=== PATIENT | female | born 1965 | race African-American/Black ===

== ENCOUNTER 2016-09-21 22:27 | Emergency (ER) | payer SELFPAY ==
[~2016-09-21] VITALS: Ht 172.7 cm; Wt 69.9 kg
[2016-09-21 22:35] VITALS: BP 157/85
[2016-09-22] MEDS ORDERED: HYDROcodone/APAP 5/325MG 1 TAB TABLET PO ONE
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
== END 2016-09-22 00:46 | disposition home or self-care (01) ==
LOC: EEVIPCON 22:27 → ER 22:27
DX: S09.8XXA Other specified injuries of head, initial encounter (principal); S05.12XA Contusion of eyeball and orbital tissues, left eye, initial encounter; R22.0 Localized swelling, mass and lump, head; E11.9 Type 2 diabetes mellitus without complications; E78.00 Pure hypercholesterolemia, unspecified; I10 Essential (primary) hypertension; Y08.89XA Assault by other specified means, initial encounter; Y93.89 Activity, other specified; Y92.89 Other specified places as the place of occurrence of the external cause; Y99.8 Other external cause status
CPT/HCPCS: 70450; 99284-25

== ENCOUNTER 2017-06-03 08:40 | Inpatient (IN) | payer OTHER ==
[2017-06-03 09:35] LABS: BILIRUBIN,URINE NEGATIVE (NEG); CLARITY,URINE CLEAR; COLOR,URINE YELLOW; GLUCOSE,URINE 250 mg/dL (NEG); NITRITE,URINE NEGATIVE (NEG); PH,URINE 5.5; PROTEIN,URINE NEGATIVE (NEG-TRACE); UROBILINOGEN,URINE 0.2 mg/dL (0.2 mg/dL)
[2017-06-03 09:42] LABS: BARBITURATES NEG (NEG); BENZODIAZEPINES NEG (NEG); CANNABINOIDS POS (NEG); COCAINE NEG (NEG); METHADONE NEG (NEG); OPIATES NEG (NEG); PHENCYCLIDINE NEG (NEG)
[2017-06-03 09:46] LABS: AMPHETAMINE/METHAMPHETAMINE NEG (NEG); ETHANOL, URINE NEG (NEG)
[2017-06-03 09:51] LABS: ADD MAN DIFF? NO; BASO % 1 % (0-3); EOS # 0.2 x10^3/uL (0.0-0.7); EOS % 4 % (0-3); HEMATOCRIT 43.9 % (36.0-47.0); HEMOGLOBIN 14.5 g/dL (12.0-15.5); LYMPH % 38 % (24-48); MEAN CORPUSCULAR HEMOGLOBIN 30 pg (25-35); MEAN CORPUSCULAR HGB CONC 33 g/dL (31-37); MEAN CORPUSCULAR VOLUME 90 fL (79-100); MONO # 0.3 x10^3/uL (0.0-1.1); MONO % 6 % (0-9); NEUT # 2.6 x10^3uL (1.8-7.7); NEUT % 51 % (31-73); PLATELET COUNT 160 x10^3/uL (140-400); RED BLOOD COUNT 4.87 x10^6/uL (3.50-5.40); RED CELL DISTRIBUTION WIDTH 12.9 % (11.5-14.5); WHITE BLOOD COUNT 5.2 x10^3/uL (4.0-11.0)
[2017-06-03 09:52] LABS: BACTERIA,URINE MANY /HPF (0-FEW); RBC,URINE 0 /HPF (0-2); SQUAMOUS EPITHELIAL CELL,UR MANY /LPF
[2017-06-03 09:55] LABS: ANION GAP 12 (6-14); BLOOD UREA NITROGEN 12 mg/dL (7-20); CALCIUM 9.5 mg/dL (8.5-10.1); CARBON DIOXIDE 23 mmol/L (21-32); CHLORIDE 106 mmol/L (98-107); GFR 70.2; GLUCOSE 184 mg/dL (70-99); SODIUM 141 mmol/L (136-145)
[2017-06-03 10:00] LABS: ALBUMIN 3.7 g/dL (3.4-5.0); ALK PHOS 96 U/L (46-116); ALT (SGPT) 23 U/L (14-59); AST (SGOT) 14 U/L (15-37); DIRECT BILIRUBIN 0.1 mg/dL (0.0-0.2); LIPASE 204 U/L (73-393); MAGNESIUM 1.9 mg/dL (1.8-2.4); TOTAL BILIRUBIN 0.3 mg/dL (0.2-1.0); TOTAL PROTEIN 7.2 g/dL (6.4-8.2)
[2017-06-03 10:02] LABS: INR 0.9 (0.8-1.1); PROTHROMBIN TIME PATIENT 12.1 SEC (11.7-14.0)
[2017-06-03 10:02] LABS: LACTIC ACID 2.4 mmol/L (0.4-2.0)
[2017-06-03 10:03] LABS: TROPONINI < 0.017 ng/mL (0.000-0.055)
[2017-06-03] MEDS: IV NORMAL SALINE 1000ML BAG 1,000 ML IV (10:03)
[2017-06-03] MEDS: fentaNYL PF VIAL 100 MCG/2 ML VIAL IV (10:04)
[2017-06-03 10:10] LABS: NT-PRO BNP 20 pg/mL (0-124)
[2017-06-03 10:10] LABS: CKMB MASS < 0.5 ng/mL (0.0-3.6); CREATINE KINASE 63 U/L (26-192)
[2017-06-03] MEDS ORDERED: ONDANSETRON PF 4 MG/2 ML VIAL. IV ×2 (11:30→15:30)
[2017-06-03] MEDS ORDERED: DEXTROSE 50% 25 GM / 50ML DISP.SYRIN. IV (13:00)
[2017-06-03] MEDS: INSULIN ASPART 300 UNITS/3 ML INSULN.PEN SQ ×2 (13:03→17:38)
[2017-06-03 14:04] LABS: TROPONINI < 0.017 ng/mL (0.000-0.055)
[2017-06-03 14:47] LABS: INFLUENZA A PATIENT NEGATIVE (NEGATIVE); INFLUENZA B PATIENT NEGATIVE (NEGATIVE); OBC FLU VALID
[2017-06-03] MEDS ORDERED: MORPHINE SULFATE 4 MG/ML DISP.SYRIN. IV (15:30)
[2017-06-03] MEDS ORDERED: hydrALAZINE 20 MG/ML VIAL. IVP (15:30)
[2017-06-03] MEDS ORDERED: ACETAMINOPHEN 325 MG TABLET. PO (15:30)
[2017-06-03] MEDS: GABAPENTIN 100 MG CAPSULE. PO ×2 (17:04→22:14)
[2017-06-03] MEDS: ENOXAPARIN 40 MG/0.4 ML SYRINGE. SQ (17:05)
[2017-06-03 17:26] LABS: POC GLUCOSE 162 mg/dL (70-99)
[2017-06-03 17:45] LABS: VITAMIN-B12 340 pg/mL (247-911)
[2017-06-03] MEDS: IBUPROFEN 800 MG TABLET. PO (17:54)
[2017-06-03 18:05] LABS: CREATINE KINASE 54 U/L (26-192)
[2017-06-03 18:12] LABS: TROPONINI < 0.017 ng/mL (0.000-0.055)
[2017-06-03 19:20] LABS: SEDIMENTATION RATE 5 (0-25)
[2017-06-03 20:10] LABS: POC GLUCOSE 181 mg/dL (70-99)
[2017-06-04 03:16] LABS: HEMOGLOBIN A1C 7.8 % (4.8-5.6)
[2017-06-04 05:53] LABS: ADD MAN DIFF? NO
[2017-06-04 06:13] LABS: BASO # 0.1 x10^3/uL (0.0-0.2); BASO % 1 % (0-3); EOS # 0.2 x10^3/uL (0.0-0.7); EOS % 5 % (0-3); HEMATOCRIT 40.5 % (36.0-47.0); HEMOGLOBIN 13.4 g/dL (12.0-15.5); LYMPH # 2.6 x10^3/uL (1.0-4.8); LYMPH % 55 % (24-48); MEAN CORPUSCULAR HEMOGLOBIN 30 pg (25-35); MEAN CORPUSCULAR HGB CONC 33 g/dL (31-37); MEAN CORPUSCULAR VOLUME 91 fL (79-100); MONO # 0.3 x10^3/uL (0.0-1.1); MONO % 6 % (0-9); NEUT # 1.6 x10^3uL (1.8-7.7); NEUT % 34 % (31-73); PLATELET COUNT 153 x10^3/uL (140-400); RED BLOOD COUNT 4.46 x10^6/uL (3.50-5.40); RED CELL DISTRIBUTION WIDTH 13.1 % (11.5-14.5); WHITE BLOOD COUNT 4.7 x10^3/uL (4.0-11.0)
[2017-06-04 06:32] LABS: ANION GAP 8 (6-14); BLOOD UREA NITROGEN 13 mg/dL (7-20); CALCIUM 9.3 mg/dL (8.5-10.1); CARBON DIOXIDE 27 mmol/L (21-32); CHLORIDE 107 mmol/L (98-107); CHOLESTEROL 190 mg/dL (0-200); GFR 70.2; GLUCOSE 150 mg/dL (70-99); HDLC 64 mg/dL (40-60); LDLC 114 mg/dL (0-100); NON-HDL CHOLESTEROL 126 mg/dL (0-129); SODIUM 142 mmol/L (136-145); TRIGLYCERIDES 58 mg/dL (0-150); VLDLC 12 mg/dL (0-40)
[2017-06-04] MEDS: IBUPROFEN 800 MG TABLET. PO ×3 (07:48→16:54)
[2017-06-04] MEDS: GABAPENTIN 100 MG CAPSULE. PO ×3 (07:48→22:24)
[2017-06-04] MEDS: traMADol 50 MG TABLET PO (07:48)
[2017-06-04] MEDS: INSULIN ASPART 300 UNITS/3 ML INSULN.PEN SQ ×3 (07:51→17:00)
[2017-06-04 08:36] LABS: VITAMIN-B12 261 pg/mL (247-911)
[2017-06-04 10:56] LABS: POC GLUCOSE 179 mg/dL (70-99)
[2017-06-04 15:24] LABS: POC GLUCOSE 165 mg/dL (70-99)
[2017-06-04] MEDS: ENOXAPARIN 40 MG/0.4 ML SYRINGE. SQ (16:55)
[2017-06-04 18:26] LABS: POC GLUCOSE 189 mg/dL (70-99)
[2017-06-04 21:25] LABS: POC GLUCOSE 169 mg/dL (70-99)
[2017-06-04 21:35] LABS: POC GLUCOSE 110 mg/dL (70-99)
[2017-06-05] MEDS: INSULIN ASPART 300 UNITS/3 ML INSULN.PEN SQ ×4 (08:00→23:05)
[2017-06-05 08:21] LABS: POC GLUCOSE 131 mg/dL (70-99)
[2017-06-05] MEDS: IBUPROFEN 800 MG TABLET. PO ×3 (08:36→17:52)
[2017-06-05] MEDS: GABAPENTIN 100 MG CAPSULE. PO ×4 (08:36→21:19)
[2017-06-05] MEDS: tiZANidine 4 MG TABLET. PO (09:45)
[2017-06-05 11:49] LABS: POC GLUCOSE 190 mg/dL (70-99)
[2017-06-05] MEDS: DEXAMETHASONE SOD PHOS 4 MG/ML VIAL IV ×3 (15:00→22:59)
[2017-06-05] MEDS: traMADol 50 MG TABLET PO (15:01)
[2017-06-05] MEDS: DOCUSATE SODIUM 100 MG CAPSULE. PO (15:02)
[2017-06-05 19:22] LABS: POC GLUCOSE 139 mg/dL (70-99)
[2017-06-05 21:03] LABS: POC GLUCOSE 284 mg/dL (70-99)
[2017-06-06] MEDS: DEXAMETHASONE SOD PHOS 4 MG/ML VIAL IV ×4 (06:10→22:47)
[2017-06-06 06:11] LABS: ADD MAN DIFF? NO
[2017-06-06 06:43] LABS: ALBUMIN 3.4 g/dL (3.4-5.0); ALBUMIN/GLOBULIN RATIO 0.9 (1.0-1.7); ALK PHOS 88 U/L (46-116); ALT (SGPT) 31 U/L (14-59); ANION GAP 10 (6-14); AST (SGOT) 19 U/L (15-37); BLOOD UREA NITROGEN 11 mg/dL (7-20); BUN/CREATININE RATIO 12 (6-20); CALCIUM 9.6 mg/dL (8.5-10.1); CARBON DIOXIDE 23 mmol/L (21-32); CHLORIDE 106 mmol/L (98-107); CREATININE 0.9 mg/dL (0.6-1.0); GFR 79.3; GLUCOSE 209 mg/dL (70-99); SODIUM 139 mmol/L (136-145); TOTAL BILIRUBIN 0.3 mg/dL (0.2-1.0); TOTAL PROTEIN 7.3 g/dL (6.4-8.2)
[2017-06-06 06:49] LABS: BASO % 0 % (0-3); EOS % 0 % (0-3); HEMATOCRIT 40.3 % (36.0-47.0); HEMOGLOBIN 13.4 g/dL (12.0-15.5); LYMPH # 1.1 x10^3/uL (1.0-4.8); LYMPH % 18 % (24-48); MEAN CORPUSCULAR HEMOGLOBIN 30 pg (25-35); MEAN CORPUSCULAR HGB CONC 33 g/dL (31-37); MEAN CORPUSCULAR VOLUME 90 fL (79-100); MONO # 0.2 x10^3/uL (0.0-1.1); MONO % 3 % (0-9); NEUT # 5.2 x10^3uL (1.8-7.7); NEUT % 80 % (31-73); PLATELET COUNT 154 x10^3/uL (140-400); RED BLOOD COUNT 4.46 x10^6/uL (3.50-5.40); RED CELL DISTRIBUTION WIDTH 13.2 % (11.5-14.5); WHITE BLOOD COUNT 6.5 x10^3/uL (4.0-11.0)
[2017-06-06] MEDS ORDERED: LIDOCAINE 1% PF 2 ML VIAL. ID (07:00)
[2017-06-06] MEDS ORDERED: PROCHLORPERAZINE 10 MG/2 ML VIAL. IV (07:00)
[2017-06-06] MEDS ORDERED: MORPHINE SULFATE 4 MG/ML DISP.SYRIN. IV (07:00)
[2017-06-06] MEDS ORDERED: ONDANSETRON PF 4 MG/2 ML VIAL. IV (07:00)
[2017-06-06] MEDS ORDERED: fentaNYL PF VIAL 100 MCG/2 ML VIAL IV (07:00)
[2017-06-06] MEDS: IV RINGERS,LACTATED 1000ML 1,000 ML IV (07:00)
[2017-06-06 07:46] LABS: POC GLUCOSE 182 mg/dL (70-99)
[2017-06-06] MEDS: INSULIN ASPART 300 UNITS/3 ML INSULN.PEN SQ ×4 (08:00→22:52)
[2017-06-06] MEDS: IBUPROFEN 800 MG TABLET. PO ×2 (09:00→15:18)
[2017-06-06] MEDS: GABAPENTIN 100 MG CAPSULE. PO ×3 (09:00→20:35)
[2017-06-06] MEDS ORDERED: LIDOCAINE 2% TOPICAL JELLY 30GM TUBE. TP (09:11)
[2017-06-06] MEDS ORDERED: DESFLURANE > 120 MINUTES IH (09:25)
[2017-06-06] MEDS ORDERED: MIDAZOLAM HCL/PF 2 MG/2 ML VIAL. (09:25)
[2017-06-06] MEDS ORDERED: REMIFENTANIL 2 MG VIAL. IV (09:26)
[2017-06-06] MEDS ORDERED: ROCURONIUM 50 MG/5 ML VIAL. (09:26)
[2017-06-06] MEDS ORDERED: GLYCOPYRROLATE 1 MG/5 ML VIAL. (09:26)
[2017-06-06] MEDS ORDERED: DEXAMETHASONE SOD PHOS 20 MG/5 ML VIAL. (09:29)
[2017-06-06] MEDS ORDERED: PROPOFOL 50 ML IV (09:29)
[2017-06-06] MEDS ORDERED: PHENYLEPHRINE 10 MG/ML VIAL. (09:29)
[2017-06-06] MEDS ORDERED: KETOROLAC 30 MG/ML INJ FOR OR. INJ (09:29)
[2017-06-06] MEDS ORDERED: PROPOFOL 20 ML IV (09:29)
[2017-06-06] MEDS ORDERED: ONDANSETRON PF 4 MG/2 ML VIAL. (09:29)
[2017-06-06] MEDS: traMADol 50 MG TABLET PO (09:35)
[2017-06-06] MEDS ORDERED: ceFAZolin 1GM IVPB FOR OMNI 100 ML IV (10:05)
[2017-06-06] MEDS ORDERED: LIDOCAINE 2% VISCOUS 15 ML SOLUTION. (10:17)
[2017-06-06] MEDS: BUPIVAC MPF-EPI 0.5%-1:200000 30 ML VIAL. INJ (12:08)
[2017-06-06] MEDS: BACITRACIN 50,000 UNIT in IV NORMAL SALINE 1000ML BAG 1,000 ML IRR (12:08)
[2017-06-06] MEDS: GELATIN SPONGE SIZE 100. (12:08)
[2017-06-06] MEDS: THROMBIN TOPICAL 20,000 UNIT SPRAY.SYRN KIT TP (12:08)
[2017-06-06] MEDS ORDERED: fentaNYL PF VIAL 100 MCG/2 ML VIAL ×2 (13:46→14:19)
[2017-06-06] MEDS: fentaNYL PF VIAL 100 MCG/2 ML VIAL IV ×4 (13:51→14:39)
[2017-06-06 14:46] LABS: POC GLUCOSE 189 mg/dL (70-99)
[2017-06-06] MEDS: cefTRIAXone IV Push 1 GM VIAL. IVP (15:27)
[2017-06-06] MEDS ORDERED: HYDROcodone/APAP 7.5/325MG 1 TAB TABLET PO (16:15)
[2017-06-06 17:58] LABS: POC GLUCOSE 362 mg/dL (70-99)
[2017-06-06] MEDS: HYDROcodone/APAP 7.5/325MG 1 TAB TABLET PO (18:15)
[2017-06-06] MEDS: LACTOBACILLUS RHAMNOSUS GG 1 CAPSULE. PO (20:35)
[2017-06-06 20:58] LABS: POC GLUCOSE 337 mg/dL (70-99)
[2017-06-06] MEDS: INSULIN DETEMIR 300 UNITS/3 ML INSULN.PEN. SQ (22:51)
[2017-06-07] MEDS: HYDROcodone/APAP 7.5/325MG 1 TAB TABLET PO ×2 (02:10→07:55)
[2017-06-07] MEDS: DEXAMETHASONE SOD PHOS 4 MG/ML VIAL IV (05:44)
[2017-06-07 06:04] LABS: ADD MAN DIFF? NO
[2017-06-07 06:12] LABS: BASO % 0 % (0-3); EOS % 0 % (0-3); HEMATOCRIT 38.1 % (36.0-47.0); HEMOGLOBIN 12.7 g/dL (12.0-15.5); LYMPH # 1.4 x10^3/uL (1.0-4.8); LYMPH % 12 % (24-48); MEAN CORPUSCULAR HEMOGLOBIN 30 pg (25-35); MEAN CORPUSCULAR HGB CONC 33 g/dL (31-37); MEAN CORPUSCULAR VOLUME 90 fL (79-100); MONO # 0.7 x10^3/uL (0.0-1.1); MONO % 6 % (0-9); NEUT # 9.4 x10^3uL (1.8-7.7); NEUT % 81 % (31-73); PLATELET COUNT 154 x10^3/uL (140-400); RED BLOOD COUNT 4.25 x10^6/uL (3.50-5.40); RED CELL DISTRIBUTION WIDTH 13.1 % (11.5-14.5); WHITE BLOOD COUNT 11.6 x10^3/uL (4.0-11.0)
[2017-06-07 06:31] LABS: ALBUMIN 3.3 g/dL (3.4-5.0); ALBUMIN/GLOBULIN RATIO 0.9 (1.0-1.7); ALK PHOS 83 U/L (46-116); ALT (SGPT) 20 U/L (14-59); ANION GAP 8 (6-14); AST (SGOT) 13 U/L (15-37); BLOOD UREA NITROGEN 14 mg/dL (7-20); BUN/CREATININE RATIO 14 (6-20); CALCIUM 9.4 mg/dL (8.5-10.1); CARBON DIOXIDE 26 mmol/L (21-32); CHLORIDE 105 mmol/L (98-107); GFR 70.2; GLUCOSE 173 mg/dL (70-99); POTASSIUM 4.3 mmol/L (3.5-5.1); SODIUM 139 mmol/L (136-145); TOTAL BILIRUBIN 0.3 mg/dL (0.2-1.0); TOTAL PROTEIN 6.8 g/dL (6.4-8.2)
[2017-06-07 07:45] LABS: POC GLUCOSE 179 mg/dL (70-99)
[2017-06-07] MEDS: GABAPENTIN 100 MG CAPSULE. PO (07:55)
[2017-06-07] MEDS: LACTOBACILLUS RHAMNOSUS GG 1 CAPSULE. PO (07:55)
[2017-06-07] MEDS: INSULIN ASPART 300 UNITS/3 ML INSULN.PEN SQ ×2 (07:59→11:38)
[2017-06-07 11:37] LABS: POC GLUCOSE 236 mg/dL (70-99)
== END 2017-06-07 12:00 | disposition home or self-care (01) | DRG 853 ==
LOC: ER 08:40 → 6 SOUTH 10:48
PROC: 0RG10A0 Fusion of Cervical Vertebral Joint with Interbody Fusion Device, Anterior Approach, Anterior Column, Open Approach (ICD-10-PCS; principal; 2017-06-06 11:16)
PROC: 0RB30ZZ Excision of Cervical Vertebral Disc, Open Approach (ICD-10-PCS; 2017-06-06 11:16)
PROC: 4A11X4G Monitoring of Peripheral Nervous Electrical Activity, Intraoperative, External Approach (ICD-10-PCS; 2017-06-06 11:16)
DX: A41.9 Sepsis, unspecified organism (principal); E11.00 Type 2 diabetes mellitus with hyperosmolarity without nonketotic hyperglycemic-hyperosmolar coma (NKHHC); G95.89 Other specified diseases of spinal cord; E11.40 Type 2 diabetes mellitus with diabetic neuropathy, unspecified; N39.0 Urinary tract infection, site not specified; E11.65 Type 2 diabetes mellitus with hyperglycemia; F12.10 Cannabis abuse, uncomplicated; F17.200 Nicotine dependence, unspecified, uncomplicated; M47.812 Spondylosis without myelopathy or radiculopathy, cervical region; E78.5 Hyperlipidemia, unspecified; F32.9 Major depressive disorder, single episode, unspecified; F41.9 Anxiety disorder, unspecified; G89.29 Other chronic pain; I10 Essential (primary) hypertension; M50.30 Other cervical disc degeneration, unspecified cervical region; N88.8 Other specified noninflammatory disorders of cervix uteri; Z82.49 Family history of ischemic heart disease and other diseases of the circulatory system; Z98.1 Arthrodesis status; Z98.51 Tubal ligation status; E78.00 Pure hypercholesterolemia, unspecified
CPT/HCPCS: 36415; 70450; 70551; 71045; 72141; 73521; 76000; 80048; 80053; 80061; 80076; 80307; 81001; 82306; 82550; 82553; 82607; 82962; 83036; 83605; 83690; 83735; 83880; 84443; 84484; 85025; 85610; 85651; 87086; 87186; 87804; 87804-59; 88304; 88311; 93005; 93306; 96361; 96374; 97112-GP; 97116-GP; 97162-GP; 97164-GP; 97166-GO; 97535-GO; 99285; 99285-25; 99406; C1713; J0690; J0696; J1100; J1650; J1815; J1885; J2250; J2405; J2704; J3010; J3490; J7030

== ENCOUNTER 2017-11-14 13:25 | Inpatient (IN) | payer SELFPAY ==
[~2017-11-14] VITALS: Ht 172.7 cm; Wt 73.9 kg
[~2017-11-14 13:25] MED LIST: ALPR0.5T6 PO; CITA40TA12 PO; HYDR-2758 PO; METH4TAB2 PO
[2017-11-14] MEDS ORDERED: MAG HYDROX/ALUMINUM HYD/SIMETH 30 ML ORAL.SUSP PO PRN (14:15)
[2017-11-14] MEDS ORDERED: diphenhydrAMINE HCL 25 MG CAPSULE PO PRN (14:15)
[2017-11-14] MEDS ORDERED: 0.9 % SODIUM CHLORIDE 10 ML DISP.SYRIN. IV PRN (14:15)
[2017-11-14] MEDS ORDERED: ACETAMINOPHEN 325 MG TABLET. PO PRN (14:15)
[2017-11-14] MEDS ORDERED: CALCIUM CARBONATE 500 MG TAB.CHEW PO PRN (14:15)
[2017-11-14] MEDS ORDERED: diphenhydrAMINE 50 MG/ML VIAL IV PRN (14:15)
[2017-11-14 15:00] VITALS: BP 136/71
[2017-11-14] MEDS ORDERED: DEXTROSE 50% 25 GM / 50ML DISP.SYRIN. IV PRN (15:00)
[2017-11-14] MEDS: GABAPENTIN 300 MG CAPSULE. PO SCH ×2 (15:00→20:56)
[2017-11-14] MEDS: CITALOPRAM 20 MG TABLET. PO SCH (15:00)
--- NOTE | 2017-11-14 15:20 | HP ---
ADMIT DATE: 11/14/2017 HISTORY OF PRESENT ILLNESS: The patient is a pleasant 51-year-old who underwent an anterior cervical microdiskectomy and fusion at C5-C6 in 05/2017 for cervical myelopathy, herniated cervical disk and cervical myelomalacia. She was having difficulty with neck and shoulder pain as well as numbness in her hands and unsteadiness of gait. Following surgery, her symptoms did improve to a degree. However, over the last month, she has noticed increasing pain in her upper extremities as well as numbness in her hands and unsteadiness of gait. She was seen in the office today and reports significant increase in her upper extremity burning pain and unsteady with walking. PAST MEDICAL HISTORY: Anxiety, depression, diabetes. PAST SURGICAL HISTORY: Carpal tunnel release in 2002, anterior cervical diskectomy and fusion at C5-C6 in 05/2017 as mentioned above. ALLERGIES: No known drug allergies. MEDICATIONS: Listed on the MAR, but she has been taking Robaxin, gabapentin and Celexa. FAMILY HISTORY: Hypertension. SOCIAL HISTORY: Occasionally drinks alcohol. PHYSICAL EXAMINATION: GENERAL: Alert and oriented. HEENT: Head is normocephalic, atraumatic. Well-healed cervical incision. MUSCULOSKELETAL: There is some tenderness with palpation of the posterior cervical spine, decreased range of motion of the cervical spine. EXTREMITIES: No clubbing, cyanosis or edema. NEUROLOGIC: She is alert and oriented. Normal strength in her upper and lower extremities. There is a decrease in light touch sensation in the upper extremities and hands. Mildly unsteady gait. Reflexes were 2+ and symmetric in the upper and lower extremities. ASSESSMENT AND PLAN: She is having a significant increase in her symptoms with unsteadiness and pain and numbness in her upper and lower extremities. She will be admitted for an MRI scan and further evaluation and treatment. KAMILA HARDIN MD DR: JANA/raeann JOB#: [id number] / [id number]
[2017-11-14] MEDS ORDERED: METH-38 PO (15:28)
[2017-11-14] MEDS ORDERED: DIAZ5TAB4 PO (15:28)
[2017-11-14] MEDS ORDERED: GABA-586 PO (15:51)
[2017-11-14] MEDS ORDERED: BUSP10TA PO (15:51)
[2017-11-14] MEDS ORDERED: SERT50TA PO (15:52)
[2017-11-14] MEDS: METHOCARBAMOL 750 MG TABLET PO SCH ×2 (16:15→20:56)
[2017-11-14] MEDS: HYDROcodone/APAP 5/325MG 1 TAB TABLET PO PRN ×2 (16:15→20:56)
[2017-11-14 19:45] VITALS: BP 103/59
[2017-11-14] MEDS ORDERED: GADOBUTROL 7.5 MMOL/7.5 ML VIAL IV ONE (19:45)
[2017-11-14 23:20] VITALS: BP 105/61
[2017-11-15] MEDS: HYDROcodone/APAP 5/325MG 1 TAB TABLET PO PRN ×3 (01:55→14:10)
[2017-11-15 03:23] VITALS: BP 84/49
[2017-11-15 07:00] VITALS: BP 113/65
--- NOTE | 2017-11-15 08:23 | RAD ---
MRI Cervical Spine with and without contrast History: Cervical stenosis, myelopathy Technique: Multiplanar, multi sequential pre and postcontrast MR imaging was performed of the cervical spine. Comparison: June 03, 2017 Findings: There is again focus of abnormal T2 and STIR hyperintense signal of the cervical or cord at C5-C6 overall similar in size without associated enhancement. There is no new cervical cord signal abnormality. There is no significant enhancement of the cervical cord or enhancement in the intervertebral disc spaces. There is been interval anterior cervical fusion at C5-C6. There is no new abnormality cervical medullary junction. There is no significant marrow edema. Cervical vertebral body stature and AP alignment are within normal limits. There is mild disc desiccation C4-5. There is a [id number] left maxillary sinus mucosal thickening, very minimally on the right consistent small mucous retention cyst. C2-C3: Neural foramina and spinal canal are adequate. C3-C4: There is a very shallow posterior protrusion. Central canal is borderline about 10 mm. There is minimal uncovertebral degenerative change. There is mild to moderate narrowing of left neural foramen, right neural foramen overall adequate. C4-C5: There is again negligible disc osteophyte complex and bulge. Central canal is minimally narrowed to 9 to 10 mm. There is mild proximal narrowing of the left neural foramen, right neural foramen overall adequate. C5-C6: There is minimal posterior osteophytes. There is buckling of the ligamentum flavum. Central canal is narrowed to about 8 mm, somewhat decreased. There is uncovertebral degenerative change greater on the left, contributes to fairly severe neural foramina compromise greater on the left. C6-C7: There is negligible disc osteophyte complex. Central canal is borderline about 10 mm. There is minimal uncovertebral degenerative change greater on the left, very mild narrowing of the left neural foramen. Right neural foramen is overall adequate. C7-T1: There is facet degenerative change. Neural spinal canal is adequate. There is likely [id number] narrowing of the right neural foramen, left neural foramen not significantly narrowed. Impression: 1. There is mild spinal stenosis as described C4-5 and C5-6. There is fairly severe neural foramina compromise bilaterally at C5-C6, lesser degree of narrowing on the right at C7-T1 and on the left at C3-4. There has been anterior cervical fusion at C5-6. There is again myelomalacia of the cervical cord cord centered at C5-6. Electronically signed by: Ulices Guerra MD (11/15/2017 8:19 AM) [facility]
[2017-11-15] MEDS: CITALOPRAM 20 MG TABLET. PO SCH (08:47)
[2017-11-15] MEDS: METHOCARBAMOL 750 MG TABLET PO SCH ×2 (08:47→14:09)
[2017-11-15] MEDS: GABAPENTIN 300 MG CAPSULE. PO SCH ×2 (08:47→14:09)
[2017-11-15 11:00] VITALS: BP 98/54
[2017-11-15 14:56] VITALS: BP 115/68
--- NOTE | 2017-11-15 17:13 | DISCH ---
DISCHARGE INSTRUCTIONS Condition on Discharge Condition on Discharge: Stable Activity After Discharge Activity Instructions for Disc: Activity as tolerated, Avoid exertion Lifting Instructions after Dis: No heavy lifting, No pulling or pushing, Do not lift >10 pounds Driving Instructions after Dis: No driving for 2 weeks Weight Bearing Status after Di: Other, see below Diet after Discharge Diet after Discharge: Diabetic No Calorie Level Additional Diet Restrictions: resume home diet Wound Incision Care Wound/Incision Care: Ice to area for comfort Contacting the [facility] after DC Call your doctor for: Concerns you may have Follow-Up Follow up with: Dr. Hardin next week [phone] Treatment/Equipment after DC Adaptive Equipment Issued: None KAMILA HARDIN MD Nov 15, 2017 17:13
--- NOTE | 2017-11-15 17:18 | PDOC ---
PROGRESS NOTES Subjective Subjective continued neck pain and pain, numbness and tingling in upper extremities Objective Objective Vital Signs Date Time Temp Pulse Resp B/P (MAP) Pulse Ox O2 Delivery O2 Flow Rate FiO2 11/15/17 15:15 99 Room Air 11/15/17 14:56 97.9 74 18 115/68 (84) 97.9 Intake and Output 11/15/17 07:00 Intake Total 1010 ml Balance 1010 ml Intake Oral 1010 ml # Voids 3 Physical Exam General: Alert, Oriented X3, Cooperative MUSCULOSKELETAL: Other (FIGUEROA) Neuro: Normal speech, Strength at 5/5 X4 ext, Other Plan Plan of Care discussed MRI results she is not interested in surgery we will make arrangements for YOUNG as OP Comment Review of Relevant I have reviewed the following items keenan (where applicable) has been applied. Labs Laboratory Tests Test 11/14/17 16:45 11/14/17 21:00 11/15/17 07:57 11/15/17 11:29 Glucose (Fingerstick) 172 mg/dL (70-99) 221 mg/dL (70-99) 150 mg/dL (70-99) 152 mg/dL (70-99) Test 11/15/17 16:54 Glucose (Fingerstick) 179 mg/dL (70-99) Laboratory Tests Test 11/14/17 21:00 11/15/17 07:57 11/15/17 11:29 11/15/17 16:54 Glucose (Fingerstick) 221 mg/dL (70-99) 150 mg/dL (70-99) 152 mg/dL (70-99) 179 mg/dL (70-99) Medications Current Medications Citalopram Hydrobromide (CeleXA) 40 mg DAILY PO Last administered on 11/15/17at 08:47; Start 11/14/17 at 15:00 Acetaminophen (Tylenol) 650 mg PRN Q6HRS PRN PO MILD PAIN / TEMP; Start at 14:15 Al Hydroxide/Mg Hydroxide (Mylanta Plus Xs) 30 ml PRN Q3HRS PRN PO HEARTBURN / GAS; Start 11/14/17 at 14:15 Calcium Carbonate/ Glycine (Tums) 500 mg PRN Q3HRS PRN PO INDIGESTION; Start at 14:15 Diphenhydramine HCl (Benadryl) 25 mg PRN Q6HRS PRN PO ITCHING; Start 11/14/17 at 14:15 Diphenhydramine HCl (Benadryl) 25 mg PRN Q6HRS PRN IV ITCHING; Start 11/14/17 at 14:15 Sodium Chloride (Normal Saline Flush) 3 ml QSHIFT PRN IV AFTER MEDS AND BLOOD DRAWS; Start 11/14/17 at 14:15 Acetaminophen/ Hydrocodone Bitart (Lortab 5/325) 1 tab PRN Q4HRS PRN PO MODERATE PAIN Last administered on 11/15/17at 01:55; Start 11/14/17 at 14:15 Acetaminophen/ Hydrocodone Bitart (Lortab 5/325) 2 tab PRN Q4HRS PRN PO SEVERE PAIN Last administered on 11/15/17at 14:10; Start 11/14/17 at 14:15 Methocarbamol (Robaxin) 750 mg TID PO Last administered on 11/15/17at 14:09; Start 11/14/17 at 15:00 Gabapentin (Neurontin) 300 mg TID PO Last administered on 11/15/17at 14:09; Start 11/14/17 at 15:00 Dextrose (Dextrose 50%-Water Syringe) 12.5 gm PRN Q15MIN PRN IV SEE COMMENTS; Start 11/14/17 at 15:00 Gadobutrol (Gadavist) 7.5 mmol 1X ONCE IV ; Start 11/14/17 at 19:45; Stop 11/14 at 19:46; Status DC Active Scripts Active Reported Zoloft (Sertraline Hcl) 50 Mg Tablet 1 Tab PO DAILY Gabapentin 300 Mg Capsule 300 Mg PO TID Buspirone Hcl 10 Mg Tablet 1 Tab PO BID Diazepam 5 Mg Tablet 5 Mg PO BID Robaxin-750 (Methocarbamol) 750 Mg Tablet 1 Tab PO TID Celexa (Citalopram Hydrobromide) 40 Mg Tablet 1 Tab PO DAILY Alprazolam 0.5 Mg Tablet 1 Tab PO TID Hydrocodone-Apap 5-325 (Hydrocodone Bit/Acetaminophen) 1 Each Tablet 1 Tab PO PRN Q6HRS PRN Medrol (Methylprednisolone) 4 Mg Tab.ds.pk 1 Pkg PO UD Vitals/I & O Vital Sign - Last 24 Hours 11/14/17 11/14/17 11/14/17 11/14/17 19:45 20:00 20:56 22:00 Temp 98.1 98.1 Pulse 73 Resp 18 18 18 B/P (MAP) 103/59 (74) Pulse Ox 96 96 O2 Delivery Room Air Room Air Room Air 11/14/17 11/15/17 11/15/17 11/15/17 23:20 01:55 03:00 03:23 Temp 98.0 97.7 98.0 97.7 Pulse 66 69 Resp 18 18 B/P (MAP) 105/61 (76) 84/49 (61) Pulse Ox 96 98 98 O2 Delivery Room Air Room Air Room Air Room Air 11/15/17 11/15/17 11/15/17 11/15/17 07:00 07:31 07:45 11:00 Temp 97.7 98.1 97.7 98.1 Pulse 64 72 Resp 16 18 B/P (MAP) 113/65 (81) 98/54 (69) Pulse Ox 96 98 97 O2 Delivery Room Air Room Air Room Air Room Air 11/15/17 11/15/17 11/15/17 14:10 14:56 15:15 Temp 97.9 97.9 Pulse 74 Resp 18 B/P (MAP) 115/68 (84) Pulse Ox 97 99 99 O2 Delivery Room Air Room Air Room Air Intake and Output 11/14/17 11/14/17 11/15/17 15:00 23:00 07:00 Intake Total 470 ml 540 ml Balance 470 ml 540 ml KAMILA HARDIN MD Nov 15, 2017 17:18
== END 2017-11-15 17:30 | disposition home or self-care (01) | DRG 93 ==
LOC: 4 NORTH 13:38
PROVIDERS: ADMIT Neurological Surgery; ATTEND Neurological Surgery
DX: G95.89 Other specified diseases of spinal cord (principal); M54.2 Cervicalgia; E11.9 Type 2 diabetes mellitus without complications; F32.9 Major depressive disorder, single episode, unspecified; F41.9 Anxiety disorder, unspecified; Z82.49 Family history of ischemic heart disease and other diseases of the circulatory system; Z98.1 Arthrodesis status; Z79.899 Other long term (current) drug therapy
CPT/HCPCS: 72156; 82962; 99406

== ENCOUNTER 2018-01-04 05:26 | Emergency (ER) | payer SELFPAY ==
[~2018-01-04] VITALS: Ht 175.3 cm; Wt 74.4 kg
[~2018-01-04 05:26] MED LIST changes: +BUSP10TA PO; +DIAZ5TAB4 PO; +GABA-586 PO; +METH-38 PO; +SERT50TA PO
[2018-01-04] MEDS ORDERED: LIDOCAINE WITH 8.4% SOD BICARB 3 ML DISP.SYRIN. ONE (05:48)
[2018-01-04 05:50] LABS: BASO # 0.1 x10^3/uL (0.0-0.2); BASO % 1 % (0-3); EOS # 0.4 x10^3/uL (0.0-0.7); EOS % 5 % (0-3); HEMATOCRIT 39.2 % (36.0-47.0); HEMOGLOBIN 13.4 g/dL (12.0-15.5); LYMPH # 2.4 x10^3/uL (1.0-4.8); LYMPH % 34 % (24-48); MEAN CORPUSCULAR HEMOGLOBIN 31 pg (25-35); MEAN CORPUSCULAR HGB CONC 34 g/dL (31-37); MEAN CORPUSCULAR VOLUME 90 fL (79-100); MONO # 0.5 x10^3/uL (0.0-1.1); MONO % 7 % (0-9); NEUT # 3.9 x10^3uL (1.8-7.7); NEUT % 53 % (31-73); PLATELET COUNT 169 x10^3/uL (140-400); RED BLOOD COUNT 4.34 x10^6/uL (3.50-5.40); RED CELL DISTRIBUTION WIDTH 13.7 % (11.5-14.5); WHITE BLOOD COUNT 7.3 x10^3/uL (4.0-11.0)
[2018-01-04] MEDS ORDERED: ASPIRIN CHEWABLE 81 MG TABLET. PO ONE (06:00)
--- NOTE | 2018-01-04 06:06 | PHYS DOC ---
Past Medical History Past Medical History: Diabetes-Type II, High Cholesterol, Hypertension Past Surgical History: Tubal ligation, Other Additional Past Surgical Histo: carpal tunnel Alcohol Use: Occasionally Drug Use: Marijuana Adult General Chief Complaint Chief Complaint: ABSCESS HPI HPI Patient is a 52-year-old female who presents with complaint of chest pain that started 2 days ago and just has been progressively worsening. She states the pain is across her entire precordium. She rates the pain at a 6 out of 10. She states that she has had a tender swollen area on her left upper chest for the last 3 days and thinks she may have been bitten by an insect. She states that over the last 2 days the swelling has gotten worse and yesterday she started getting a little bit of drainage of pus. Patient states that this morning the swelling has gotten worse again and she feels like it needs to be drained. She denies any fever, nausea or vomiting. Patient is unsure whether or not part of her chest discomfort is due to her anxiety. She denies fever. Review of Systems Review of Systems Constitutional: Denies fever or chills [] Respiratory: Denies cough or shortness of breath [] Cardiovascular: Complains of chest pain[] GI: Denies abdominal pain, nausea, vomiting or diarrhea [] Integument: Complains of abscess[] All other systems were reviewed and found to be within normal limits, except as documented in this note. Current Medications Current Medications Current Medications Medications (Trade) Dose Ordered Sig/Dimas Start Time Stop Time Status Last Admin Dose Admin Aspirin (Children'S Aspirin) 324 mg 1X ONCE 01/04/18 06:00 01/04/18 06:01 DC 01/04/18 06:26 324 MG Bacitracin 1 silvia 1X ONCE 01/04/18 07:00 01/04/18 07:01 DC 01/04/18 06:26 1 SILVIA Cefazolin Sodium 50 ml @ 100 mls/hr 1X ONCE 01/04/18 07:00 01/04/18 07:29 01/04/18 06:26 100 MLS/HR Lidocaine/Sodium Bicarbonate (Buffered Lidocaine 1%) 3 ml 1X ONCE 01/04/18 06:15 01/04/18 06:16 DC 01/04/18 05:57 3 ML Allergies Allergies Allergies Coded Allergies Type Severity Reaction Last Updated Verified No Known Drug Allergies 01/04/14 No Physical Exam Physical Exam Constitutional: Well developed, well nourished, no acute distress, non-toxic appearance. [] HENT: Normocephalic, atraumatic, bilateral external ears normal, oropharynx moist, no oral exudates, nose normal. [] Eyes: PERRLA, EOMI, conjunctiva normal, no discharge. [] Neck: Normal range of motion, no tenderness, supple, no stridor. [] Cardiovascular: Tachycardic rate with regular rhythm[] Lungs & Thorax: Bilateral breath sounds clear to auscultation [] Abdomen: Bowel sounds normal, soft, no tenderness. [] Skin: Left upper chest demonstrates an area of moderate swelling with induration and fluctuance consistent with abscess. [] Extremities: No tenderness, no cyanosis, no clubbing, ROM intact, no edema. [] Neurologic: Alert and oriented X 3, normal motor function, normal sensory function, no focal deficits noted. [] Current Patient Data Vital Signs Vital Signs Date Time Temp Pulse Resp B/P (MAP) Pulse Ox O2 Delivery O2 Flow Rate FiO2 01/04/18 06:34 98 16 129/76 (93) 99 Room Air 01/04/18 05:28 98.3 98.3 Lab Values Laboratory Tests Test 01/04/18 05:36 01/04/18 06:20 White Blood Count 7.3 x10^3/uL (4.0-11.0) Red Blood Count 4.34 x10^6/uL (3.50-5.40) Hemoglobin 13.4 g/dL (12.0-15.5) Hematocrit 39.2 % (36.0-47.0) Mean Corpuscular Volume 90 fL (79-100) Mean Corpuscular Hemoglobin 31 pg (25-35) Mean Corpuscular Hemoglobin Concent 34 g/dL (31-37) Red Cell Distribution Width 13.7 % (11.5-14.5) Platelet Count 169 x10^3/uL (140-400) Neutrophils (%) (Auto) 53 % (31-73) Lymphocytes (%) (Auto) 34 % (24-48) Monocytes (%) (Auto) 7 % (0-9) Eosinophils (%) (Auto) 5 % (0-3) H Basophils (%) (Auto) 1 % (0-3) Neutrophils # (Auto) 3.9 x10^3uL (1.8-7.7) Lymphocytes # (Auto) 2.4 x10^3/uL (1.0-4.8) Monocytes # (Auto) 0.5 x10^3/uL (0.0-1.1) Eosinophils # (Auto) 0.4 x10^3/uL (0.0-0.7) Basophils # (Auto) 0.1 x10^3/uL (0.0-0.2) Sodium Level 141 mmol/L (136-145) Potassium Level 4.2 mmol/L (3.5-5.1) Chloride Level 105 mmol/L (98-107) Carbon Dioxide Level 25 mmol/L (21-32) Anion Gap 11 (6-14) Blood Urea Nitrogen 20 mg/dL (7-20) Creatinine 1.3 mg/dL (0.6-1.0) H Estimated GFR (Cockcroft-Gault) 51.6 BUN/Creatinine Ratio 15 (6-20) Glucose Level 186 mg/dL (70-99) H Calcium Level 9.0 mg/dL (8.5-10.1) Magnesium Level 1.7 mg/dL (1.8-2.4) L Total Bilirubin 0.2 mg/dL (0.2-1.0) Aspartate Amino Transferase (AST) 20 U/L (15-37) Alanine Aminotransferase (ALT) 30 U/L (14-59) Alkaline Phosphatase 118 U/L (46-116) H Troponin I Quantitative < 0.017 ng/mL (0.000-0.055) CO-Fzm-V-Type Natriuretic Peptide 80 pg/mL (0-124) Total Protein 7.0 g/dL (6.4-8.2) Albumin 3.2 g/dL (3.4-5.0) L Albumin/Globulin Ratio 0.8 (1.0-1.7) L Laboratory Tests 01/04/18 05:36 Laboratory Tests 01/04/18 06:20 EKG EKG [] Interpretation Time: EKG demonstrates sinus tachycardia with rate of 119. Radiology/Procedures Radiology/Procedures [] Course & Med Decision Making Course & Med Decision Making Pertinent Labs and Imaging studies reviewed. (See chart for details) Abscess Incision and Drainage with irrigation by me: Location: Left upper chest Anesthesia: Local 1% Lidocaine Technique: Irrigated. Disrupted loculations w/ instrumentation Packing: None Complications: Neurovascularly intact post procedure 48 hour wound check. Scar minimization instructions given. A cardiac workup has been initiated on this patient and as of 6:00 AM workup is pending. Patient is being signed out to Dr. Nickerson at 6:05 AM. @0729: Patient had unremarkable lab results except for magnesium of 1.7 and creatinine of 1.3. Patient felt better after drainage of abscess. Plan discharge patient home to diagnose of chest wall pain and abscess. Dragon Disclaimer Dragon Disclaimer This electronic medical record was generated, in whole or in part, using a voice recognition dictation system. Departure Departure Impression: Primary Impression: Chest wall abscess Additional Impressions: Chest pain Hypomagnesemia Anxiety Disposition: HOME, SELF-CARE (at 0726) Condition: IMPROVED Referrals: KRISTA CLEANING MD (PCP) Patient Instructions: Abscess, Abscess, Care After, Anxiety and Panic Attacks, Chest Wall Pain, Hypomagnesemia Additional Instructions: Change dressing daily and as needed Follow-up with your primary care physician in 3-5 days Return to ER if not getting better Scripts Acetaminophen With Codeine (TYLENOL WITH CODEINE #3 TABLET) 1 Each Tablet 1 TAB PO PRN Q6HRS PRN for PAIN, #10 TAB Prov: GWEN NICKERSON MD 01/04/18 Sulfamethoxazole/Trimethoprim (BACTRIM DS TABLET) 1 Each Tablet 1 TAB PO BID for infection, #14 TAB Prov: GWEN NICKERSON MD 01/04/18 Problem Qualifiers EZEKIEL POWERS Jr. DO Jan 04, 2018 06:06 GWEN NICKERSON MD Jan 04, 2018 07:06
--- NOTE | 2018-01-04 06:14 | RAD ---
PORTABLE CHEST 1V Clinical Indication: chest pain Comparison: AP chest, June 03, 2017. Findings: The cardiomediastinal silhouette is normal. Lungs are clear. There is no pneumothorax. No pleural effusion is appreciated. No acute bone abnormality. IMPRESSION: No acute cardiopulmonary process. Electronically signed by: Olman Gonzalez MD (01/04/2018 6:11 AM) [facility]
[2018-01-04] MEDS ORDERED: LIDOCAINE WITH 8.4% SOD BICARB 3 ML DISP.SYRIN. INJ ONE (06:15)
[2018-01-04 06:51] LABS: CREATININE 1.3 mg/dL (0.6-1.0); GFR 51.6; POTASSIUM 4.2 mmol/L (3.5-5.1)
[2018-01-04 06:53] LABS: ALBUMIN 3.2 g/dL (3.4-5.0); ALBUMIN/GLOBULIN RATIO 0.8 (1.0-1.7); MAGNESIUM 1.7 mg/dL (1.8-2.4); TOTAL BILIRUBIN 0.2 mg/dL (0.2-1.0)
[2018-01-04] MEDS ORDERED: BACITRACIN TOPICAL OINT 14GM TUBE. TP ONE (07:00)
[2018-01-04] MEDS ORDERED: ACET-704 PO (07:29)
[2018-01-04] MEDS ORDERED: SULF1TAB24 PO (07:29)
[2018-01-04 07:30] VITALS: BP 129/72
--- NOTE | 2018-01-04 07:40 | EKG ---
[facility] [address] [place] [address] Test Date: 2018-01-04 Test Time: 05:39:45 Pat Name: ARIANNA SAVAGE Department: Room: Gender: F Continuous Improvement Black Belt: : 1965 Requested By: EZEKIEL POWERS Order Number: [id number] Reading MD: Cristi Velasquez MD Measurements Intervals [place] Rate: 119 P: 41 ID: [id number] QRS: 28 QRSD: 68 T: 35 QT: 298 QTc: 420 Interpretive Statements SINUS TACHYCARDIA Electronically Signed On 01-06-2018 11:24:45 DROP TESTER by Cristi Velasquez MD
== END 2018-01-04 07:45 | disposition home or self-care (01) ==
LOC: ER 05:26
DX: L02.213 Cutaneous abscess of chest wall (principal); E83.42 Hypomagnesemia; F41.9 Anxiety disorder, unspecified; R00.0 Tachycardia, unspecified; E11.9 Type 2 diabetes mellitus without complications; E78.00 Pure hypercholesterolemia, unspecified; I10 Essential (primary) hypertension; Z98.51 Tubal ligation status
CPT/HCPCS: 10060; 36415; 71045; 80053; 83735; 83880; 84484; 85025; 93005; 96365; 99285; J0690

== ENCOUNTER 2018-11-27 09:28 | Emergency (ER) | payer SELFPAY ==
[~2018-11-27] VITALS: Ht 175.3 cm; Wt 74.4 kg
[~2018-11-27 09:28] MED LIST changes: +ACET-704 PO; -GABA-586 PO; +GABA300C18 PO; -HYDR-2758 PO; +HYDR-2761 PO; +HYDR-3164 PO; +SULF1TAB24 PO
[2018-11-27 10:18] VITALS: BP 141/72
[2018-11-27] MEDS ORDERED: LIDOCAINE 2% 20 ML VIAL. IJ ONE (10:30)
--- NOTE | 2018-11-27 10:34 | PHYS DOC ---
Past Medical History Past Medical History: Anxiety, Depression, Diabetes-Type II, High Cholesterol, Hypertension Past Surgical History: Tubal ligation, Other Additional Past Surgical Histo: carpal tunnel Alcohol Use: Occasionally Drug Use: Marijuana Adult General Chief Complaint Chief Complaint: HIP PAIN HPI HPI Patient is a 52 year old female that presents to the ER the right hip abscess has been ongoing for 4 days. The patient states that it is become actually hot and painful to her right upper leg. The patient rates her pain as severe and 10 out of 10 in severity. Denies any fevers currently. Review of Systems Review of Systems Constitutional: Denies fever or chills [] Eyes: Denies change in visual acuity, redness, or eye pain [] HENT: Denies nasal congestion or sore throat [] Respiratory: Denies cough or shortness of breath [] Cardiovascular: No additional information not addressed in HPI [] GI: Denies abdominal pain, nausea, vomiting, bloody stools or diarrhea [] : Denies dysuria or hematuria [] Musculoskeletal: Reports R hip pain. Integument: Reports abscess to R upper leg near hip. Neurologic: Denies headache, focal weakness or sensory changes [] Endocrine: Denies polyuria or polydipsia [] Complete systems were reviewed and found to be within normal limits, except as documented in this note. Current Medications Current Medications Current Medications Medications (Trade) Dose Ordered Sig/Dimas Start Time Stop Time Status Last Admin Dose Admin Lidocaine HCl 20 ml 1X ONCE 11/27/18 10:30 11/27/18 10:31 DC 11/27/18 10:42 20 ML Allergies Allergies Allergies Coded Allergies Type Severity Reaction Last Updated Verified No Known Drug Allergies 01/04/14 No Physical Exam Physical Exam Constitutional: Well developed, well nourished, no acute distress, non-toxic appearance. [] HENT: Normocephalic, atraumatic, bilateral external ears normal, oropharynx moist, no oral exudates, nose normal. [] Eyes: PERRLA, EOMI, conjunctiva normal, no discharge. [] Neck: Normal range of motion, no tenderness, supple, no stridor. [] Cardiovascular:Heart rate regular rhythm, no murmur [] Lungs & Thorax: Bilateral breath sounds clear to auscultation [] Abdomen: Bowel sounds normal, soft, no tenderness, no masses, no pulsatile masses. [] Skin: abscess with fluctuance to R upper leg. area around abscess is erythematous. Back: No tenderness, no CVA tenderness. [] Extremities: No tenderness, no cyanosis, no clubbing, ROM intact, no edema. [] Neurologic: Alert and oriented X 3, normal motor function, normal sensory function, no focal deficits noted. [] Psychologic: Affect normal, judgement normal, mood normal. [] Current Patient Data Vital Signs Vital Signs Date Time Temp Pulse Resp B/P (MAP) Pulse Ox O2 Delivery O2 Flow Rate FiO2 11/27/18 10:18 99.5 100 18 141/72 (95) 99 Room Air 99.5 Lab Values Laboratory Tests Test 11/27/18 11:28 Glucose (Fingerstick) 207 mg/dL (70-99) H EKG EKG [] Radiology/Procedures Radiology/Procedures Indication: abscess Procedure: The patient was positioned appropriately. Local anesthesia was 2% lidocaine. An incision was then made over the apex of the lesion and copious exudate material was expressed. The drainage cavity was irrigated and packed with sterile gauze. The patient tolerated the procedure well. Course & Med Decision Making Course & Med Decision Making Pertinent Labs and Imaging studies reviewed. (See chart for details) Will perform I/D of abscess. Blood sugar was 207, patient has been getting abscess frequently will have follow up with primary care doctor. Will also place on keflex, and doxycycline. Dragon Disclaimer Dragon Disclaimer This electronic medical record was generated, in whole or in part, using a voice recognition dictation system. Departure Departure Impression: Primary Impression: Diabetes Additional Impression: Abscess Disposition: 01 HOME, SELF-CARE Condition: STABLE Referrals: NO PCP (PCP) Patient Instructions: Abscess, Abscess, Care After, Diabetes Meal Planning Guide Additional Instructions: Thank you for visiting [facility]. We appreciate you trusting us with your care. If any additional problems come up don't hesitate to return to visit us. Please follow up with your primary care provider so they can plan additional care if needed and know about the problem that you had. If symptoms worsen come back to the Emergency Department. Any concerning symptoms that start such as chest pain, shortness of air, weakness or numbness on one side of the body, running high fevers or any other concerning symptoms return to the ER. Please follow up in 2 days for removal of packing. Please follow up with a primary care provider for Diabetes management. Scripts Doxycycline Hyclate (DOXYCYCLINE HYCLATE) 100 Mg Tablet 1 TAB PO BID for 7 Days, #14 TAB Prov: ARIE QUINTANILLA APRN 11/27/18 Cephalexin (KEFLEX) 500 Mg Capsule 500 MG PO QID for 7 Days, #28 CAP Prov: ARIE QUINTANILLA APRN 11/27/18 Problem Qualifiers Primary Impression: Diabetes Diabetes mellitus type: type 2 Diabetes mellitus senior living insulin use: unspecified direct marketing executive insulin use status Diabetes mellitus complication status: with other specified complication Qualified Codes: E11.69 - Type 2 diabetes mellitus with other specified complication ARIE QUINTANILLA APRN Nov 27, 2018 10:34
[2018-11-27] MEDS ORDERED: DOXY100T PO (11:39)
[2018-11-27] MEDS ORDERED: CEPH-264 PO (11:39)
== END 2018-11-27 11:49 | disposition home or self-care (01) ==
LOC: ER 09:28
DX: L02.415 Cutaneous abscess of right lower limb (principal); E11.9 Type 2 diabetes mellitus without complications; E78.00 Pure hypercholesterolemia, unspecified; I10 Essential (primary) hypertension; Z98.51 Tubal ligation status
CPT/HCPCS: 10060; 82962; 99283; J2001

== ENCOUNTER 2019-04-20 10:57 | Emergency (ER) | payer OTHER ==
[~2019-04-20] VITALS: Ht 172.7 cm; Wt 78.0 kg
[~2019-04-20 10:57] MED LIST changes: +CEPH-264 PO; +DOXY100T PO
[2019-04-20 12:39] VITALS: BP 137/72
--- NOTE | 2019-04-20 12:48 | RAD ---
PELVIS W/TV History: Vaginal bleeding. Postmenopausal. Comparison: None. Technique: Grayscale and color Doppler imaging of the pelvis was performed using transabdominal and transvaginal technique. Findings: The uterus measures 9.3 x 5.4 x 5.0 cm in length. Small heterogeneous posterior uterine lesion measures 1.1 x 0.7 cm. The endometrial stripe measures 5.7 mm. Right ovary measures 4.0 x 2.0 x 2.3 cm. Right ovarian cyst measures 2.5 x 1.8 cm. Left ovary measures 3.2 x 1.0 x 1.3 cm. Left ovarian cyst measures 1.4 x 1.1 cm. No adnexal masses are seen. No free fluid. IMPRESSION: 1. Small posterior uterine fibroid. 2. Borderline thickened endometrium. Recommend further clinical evaluation and ultrasound follow-up. 3. Bilateral ovarian cysts. Recommend attention on follow-up. Electronically signed by: Issac Waite DO (04/20/2019 12:45 PM) [id number]
[2019-04-20 13:05] LABS: BASO # 0.1 x10^3/uL (0.0-0.2); BASO % 1 % (0-3); EOS # 0.2 x10^3/uL (0.0-0.7); EOS % 4 % (0-3); HEMATOCRIT 40.1 % (36.0-47.0); HEMOGLOBIN 13.5 g/dL (12.0-15.5); LYMPH # 1.6 x10^3/uL (1.0-4.8); LYMPH % 42 % (24-48); MEAN CORPUSCULAR HEMOGLOBIN 31 pg (25-35); MEAN CORPUSCULAR HGB CONC 34 g/dL (31-37); MEAN CORPUSCULAR VOLUME 92 fL (79-100); MONO # 0.3 x10^3/uL (0.0-1.1); MONO % 7 % (0-9); NEUT # 1.7 x10^3/uL (1.8-7.7); NEUT % 45 % (31-73); PLATELET COUNT 148 x10^3/uL (140-400); RED BLOOD COUNT 4.36 x10^6/uL (3.50-5.40); RED CELL DISTRIBUTION WIDTH 15.1 % (11.5-14.5); WHITE BLOOD COUNT 3.8 x10^3/uL (4.0-11.0)
[2019-04-20 13:15] LABS: CALCIUM 8.8 mg/dL (8.5-10.1); CREATININE 0.9 mg/dL (0.6-1.0); GFR 78.7; POTASSIUM 3.9 mmol/L (3.5-5.1)
[2019-04-20 13:18] LABS: BILIRUBIN,URINE NEGATIVE (NEG); CLARITY,URINE CLEAR; COLOR,URINE YELLOW; NITRITE,URINE NEGATIVE (NEG); PH,URINE 7.5; PROTEIN,URINE NEGATIVE (NEG-TRACE)
[2019-04-20 13:20] LABS: ALBUMIN 3.4 g/dL (3.4-5.0); ALBUMIN/GLOBULIN RATIO 1.1 (1.0-1.7); TOTAL BILIRUBIN 0.3 mg/dL (0.2-1.0); TOTAL PROTEIN 6.6 g/dL (6.4-8.2)
[2019-04-20 13:26] LABS: BACTERIA,URINE 0 /HPF (0-FEW); RBC,URINE 0 /HPF (0-2); SQUAMOUS EPITHELIAL CELL,UR MOD /LPF
--- NOTE | 2019-04-20 14:35 | PHYS DOC ---
Past Medical History Past Medical History: Diabetes-Type II, High Cholesterol (ADRIALUCY APRN) Past Surgical History: No Surgical History Additional Past Surgical Histo: carpal tunnel (NATHANLUCY Uribe APRN) Smoking Status: Never Smoker Alcohol Use: None Drug Use: Marijuana (LUCY COVINGTON VENKAT) Adult General Chief Complaint Chief Complaint: VAGINAL BLEEDING [facility] HPI Patient is a 53 year old female with history of high cholesterol, diabetes type 2, who presents to the ED today complaining of vaginal bleeding that began 2 days ago. Patient reports she has not had a menstrual cycle for 4 years. Denies any abdominal pain. (NATHANLUCY Uribe APRN) Review of Systems Review of Systems Constitutional: Denies fever or chills [] Eyes: Denies change in visual acuity, redness, or eye pain [] HENT: Denies nasal congestion or sore throat [] Respiratory: Denies cough or shortness of breath [] Cardiovascular: No additional information not addressed in HPI [] GI: Reports vaginal bleeding. Denies abdominal pain, nausea, vomiting, bloody stools or diarrhea [] : Denies dysuria or hematuria [] Musculoskeletal: Denies back pain or joint pain [] Integument: Denies rash or skin lesions [] Neurologic: Denies headache, focal weakness or sensory changes [] All other systems were reviewed and found to be within normal limits, except as documented in this note. (ADRIALUCY ROBLEDO) Allergies Allergies Allergies Coded Allergies Type Severity Reaction Last Updated Verified No Known Drug Allergies 01/04/14 No (NOHELIA RAMIREZ MD) Physical Exam Physical Exam Constitutional: Well developed, well nourished, no acute distress, non-toxic appearance. [] HENT: Normocephalic, atraumatic, bilateral external ears normal, oropharynx moist, no oral exudates, nose normal. [] Eyes: PERRLA, EOMI, conjunctiva normal, no discharge. [] Neck: Normal range of motion, no tenderness, supple, no stridor. [] Cardiovascular:Heart rate regular rhythm, no murmur [] Lungs & Thorax: Bilateral breath sounds clear to auscultation [] Abdomen: Bowel sounds normal, soft, no tenderness, no masses, no pulsatile masses. [] Pelvic exam External pelvic appears normal, cervix is closed, trace amount of bright red blood in the vaginal vault, no adnexal tenderness, no CMT. Skin: Warm, dry, no erythema, no rash. [] Back: No tenderness, no CVA tenderness. [] Extremities: No tenderness, no cyanosis, no clubbing, ROM intact, no edema. [] Neurologic: Alert and oriented X 3, normal motor function, normal sensory function, no focal deficits noted. [] Psychologic: Affect normal, judgement normal, mood normal. [] (LUCY COVINGTON APRN) Current Patient Data Vital Signs Vital Signs Date Time Temp Pulse Resp B/P (MAP) Pulse Ox O2 Delivery O2 Flow Rate FiO2 04/20/19 12:39 74 16 137/72 (93) 99 Room Air 04/20/19 11:20 98.6 98.6 (NOHELIA RAMIREZ MD) Lab Values Laboratory Tests Test 04/20/19 12:52 04/20/19 13:11 White Blood Count 3.8 x10^3/uL (4.0-11.0) L Red Blood Count 4.36 x10^6/uL (3.50-5.40) Hemoglobin 13.5 g/dL (12.0-15.5) Hematocrit 40.1 % (36.0-47.0) Mean Corpuscular Volume 92 fL (79-100) Mean Corpuscular Hemoglobin 31 pg (25-35) Mean Corpuscular Hemoglobin Concent 34 g/dL (31-37) Red Cell Distribution Width 15.1 % (11.5-14.5) H Platelet Count 148 x10^3/uL (140-400) Neutrophils (%) (Auto) 45 % (31-73) Lymphocytes (%) (Auto) 42 % (24-48) Monocytes (%) (Auto) 7 % (0-9) Eosinophils (%) (Auto) 4 % (0-3) H Basophils (%) (Auto) 1 % (0-3) Neutrophils # (Auto) 1.7 x10^3/uL (1.8-7.7) L Lymphocytes # (Auto) 1.6 x10^3/uL (1.0-4.8) Monocytes # (Auto) 0.3 x10^3/uL (0.0-1.1) Eosinophils # (Auto) 0.2 x10^3/uL (0.0-0.7) Basophils # (Auto) 0.1 x10^3/uL (0.0-0.2) Prothrombin Time 13.0 SEC (11.7-14.0) Prothrombin Time INR 1.0 (0.8-1.1) Activated Partial Thromboplast Time 30 SEC (24-38) Sodium Level 142 mmol/L (136-145) Potassium Level 3.9 mmol/L (3.5-5.1) Chloride Level 108 mmol/L (98-107) H Carbon Dioxide Level 26 mmol/L (21-32) Anion Gap 8 (6-14) Blood Urea Nitrogen 5 mg/dL (7-20) L Creatinine 0.9 mg/dL (0.6-1.0) Estimated GFR (Cockcroft-Gault) 78.7 BUN/Creatinine Ratio 6 (6-20) Glucose Level 119 mg/dL (70-99) H Calcium Level 8.8 mg/dL (8.5-10.1) Total Bilirubin 0.3 mg/dL (0.2-1.0) Aspartate Amino Transferase (AST) 13 U/L (15-37) L Alanine Aminotransferase (ALT) 19 U/L (14-59) Alkaline Phosphatase 80 U/L (46-116) Total Protein 6.6 g/dL (6.4-8.2) Albumin 3.4 g/dL (3.4-5.0) Albumin/Globulin Ratio 1.1 (1.0-1.7) Urine Collection Type Unknown Urine Color Yellow Urine Clarity Clear Urine pH 7.5 Urine Specific [place] 1.010 Urine Protein Negative mg/dL (NEG-TRACE) Urine Glucose (UA) Negative mg/dL (NEG) Urine Ketones (Stick) Negative mg/dL (NEG) Urine Blood Large (NEG) Urine Nitrite Negative (NEG) Urine Bilirubin Negative (NEG) Urine Urobilinogen Dipstick 1.0 mg/dL (0.2 mg/dL) Urine Leukocyte Esterase Negative (NEG) Urine RBC 0 /HPF (0-2) Urine WBC 1-4 /HPF (0-4) Urine Squamous Epithelial Cells Mod /LPF Urine Bacteria 0 /HPF (0-FEW) Laboratory Tests 04/20/19 12:52 Laboratory Tests 04/20/19 12:52 Microbiology 04/20/19 Wet Prep - Final, Complete (NOHELIA RAMIREZ MD) EKG EKG [] (LUCY COVINGTON APRN) Radiology/Procedures Radiology/Procedures []PROCEDURE: PELVIS W/TV PELVIS W/TV History: Vaginal bleeding. Postmenopausal. Comparison: None. Technique: Grayscale and color Doppler imaging of the pelvis was performed using transabdominal and transvaginal technique. Findings: The uterus measures 9.3 x 5.4 x 5.0 cm in length. Small heterogeneous posterior uterine lesion measures 1.1 x 0.7 cm. The endometrial stripe measures 5.7 mm. Right ovary measures 4.0 x 2.0 x 2.3 cm. Right ovarian cyst measures 2.5 x 1.8 cm. Left ovary measures 3.2 x 1.0 x 1.3 cm. Left ovarian cyst measures 1.4 x 1.1 cm. No adnexal masses are seen. No free fluid. IMPRESSION: 1. Small posterior uterine fibroid. 2. Borderline thickened endometrium. Recommend further clinical evaluation and ultrasound follow-up. 3. Bilateral ovarian cysts. Recommend attention on follow-up. Electronically signed by: Issac Waite DO (04/20/2019 12:45 PM) [id number] DICTATED and SIGNED BY: ISSAC WAITE DO DATE: 04/20/19 1245 (LUCY COVINGTON APRN) Course & Med Decision Making Course & Med Decision Making Pertinent Labs and Imaging studies reviewed. (See chart for details) This is a 53-year-old male patient presented to the ED today with vaginal bleeding for 2 days. Patient reports normal menstrual cycle for 4 years. CBC with a normal hemoglobin and hematocrit, CMP would not acute findings, urine analysis is negative for any acute findings, wet prep negative for clue cells. Pelvic ultrasound- Small posterior uterine fibroid.Borderline thickened endometrium. Recommend further clinical evaluation and ultrasound follow-up. Bilateral ovarian cysts. Recommend attention on follow-up. Results were communicated with patient. Patient became upset, she states she came to the ED to be tested and diagnosed with cancer.She states we did not do adequate testing to diagnosis of cancer. Informed patient she has to see an COLLECTIONS AGENT for further testing to rule out any cancer. She walked away stating she does not have any information other than what she already knows (LUCY COVINGTON APRN) Dragon Disclaimer Dragon Disclaimer This electronic medical record was generated, in whole or in part, using a voice recognition dictation system. (LUCY COVINGTON APRN) Departure Departure Impression: Primary Impression: Dysfunctional uterine bleeding Disposition: HOME, SELF-CARE Condition: STABLE Referrals: NO PCP (PCP) LUCY COVINGTON APRN Apr 20, 2019 14:34 NOHELIA RAMIREZ MD Apr 20, 2019 17:03
[2019-04-21 18:09] LABS: GC PROBE Negative (Negative)
== END 2019-04-20 14:53 | disposition home or self-care (01) ==
LOC: ER 10:57
DX: N93.8 Other specified abnormal uterine and vaginal bleeding (principal); E11.9 Type 2 diabetes mellitus without complications; E78.00 Pure hypercholesterolemia, unspecified
CPT/HCPCS: 36415; 76830; 76856; 80053; 81001; 85025; 85610; 85730; 87491; 87591; 99285; Q0111

== ENCOUNTER 2019-10-17 22:44 | Emergency (ER) | payer SELFPAY ==
[~2019-10-17] VITALS: Ht 174 cm; Wt 75.9 kg
[2019-10-18] MEDS ORDERED: DEXAMETHASONE SOD PHOS 20 MG/5 ML VIAL. PO ONE (00:15)
[2019-10-18] MEDS ORDERED: KETOROLAC 60 MG/2 ML VIAL. IM ONE (00:15)
[2019-10-18 01:00] VITALS: BP 123/65
--- NOTE | 2019-10-18 01:14 | RAD ---
Study: CT cervical spine without contrast INDICATION: Neck pain after a fall. COMPARISON: 10/07/2018 TECHNIQUE: Axial CT imaging of the cervical spine performed without intravenous contrast. Sagittal and coronal reformats were obtained. One or more of the following individualized dose reduction techniques were utilized for this examination: 1. Automated exposure control 2. Adjustment of the mA and/or kV according to patient size 3. Use of iterative reconstruction technique. FINDINGS: Operative changes of ACDF at C5-C6. The hardware is intact. Unchanged configuration of the intradiscal spacer. No acute fracture or traumatic malalignment. No significant change in the extent of degenerative changes above and below the operative level. No noncontrast CT evidence for severe central canal stenosis. Osseous neural foraminal encroachment again greatest at the C5-C6 level. No soft tissue sequela of trauma seen throughout the neck. No apical pneumothorax. IMPRESSION: 1. No acute fracture or traumatic malalignment. 2. Unchanged C5-C6 ACDF construct. No significant progression of degenerative changes from 10/07/2018. Electronically signed by: ALISHA ROJAS MD (10/18/2019 1:11 AM) [id number]
[2019-10-18] MEDS ORDERED: METH-38 PO (01:22)
[2019-10-18] MEDS ORDERED: METH4TAB2 PO (01:22)
--- NOTE | 2019-10-18 01:25 | PHYS DOC ---
Past Medical History Past Medical History: Diabetes-Type II, High Cholesterol Past Surgical History: No Surgical History Additional Past Surgical Histo: carpal tunnel Smoking Status: Current Every Day Smoker Alcohol Use: Rarely Drug Use: Marijuana General Adult EDM: Chief Complaint: MUSCLE SPASM/CRAMP HPI: HPI: Patient 53-year-old female who presents to the emergency room complaining of neck pain with tingling and sharp shooting pains into her arms. Patient has a history of neck surgery. She has chronic neck pain and has had these symptoms previously. Her pain is mostly on the right lateral side. She did have a minor fall 2 days ago. She states that initially after the fall she felt completely fine. She started having symptoms several hours after the fall. She denies any weakness. She does not have any dizziness, headache. She did not lose consciousness. She is on blood thinners. Review of Systems: Review of Systems: General: Denies fever, chills, sweats, fatigue Eyes: Denies drainage, blurred vision, eye redness HENT: Denies rhinorrhea, sore throat, earache Respiratory: Denies cough, shortness of breath, wheezing Cardiac: Denies edema, palpitations, chest pain GI: Denies abdominal pain, Nausea, vomiting MSK: Denies back pain. Reports neck pain Skin: Denies rash, jaundice Neuro: Denies headache, dizziness Psychiatric: Denies SI/HI Heart Score: Risk Factors: Risk Factors: DM, Current or recent (<one month) smoker, HTN, HLP, family history of CAD, obesity. Risk Scores: Score 0 - 3: 2.5% MACE over next 6 weeks - Discharge Home Score 4 - 6: 20.3% MACE over next 6 weeks - Admit for Clinical Observation Score 7 - 10: 72.7% MACE over next 6 weeks - Early Invasive Strategies Current Medications: Current Medications Medications (Trade) Dose Ordered Sig/Dimas Start Time Stop Time Status Last Admin Dose Admin Dexamethasone Sodium Phosphate (Decadron) 10 mg 1X ONCE 10/18/19 00:15 10/18/19 00:16 DC 10/18/19 00:23 10 MG Ketorolac Tromethamine (Toradol Im) 60 mg 1X ONCE 10/18/19 00:15 10/18/19 00:16 DC 10/18/19 00:24 60 MG Allergies: Allergies: Allergies Coded Allergies Type Severity Reaction Last Updated Verified No Known Drug Allergies 01/04/14 No Physical Exam: PE: General: Awake, alert, NAD. Well Nourished, well hydrated. Cooperative HEENT: Atraumatic, EOMI, PERRL, airway patent, moist oral mucosa Neck: Supple, trachea midline, right-sided neck tenderness Respiratory: CTA bilaterally, normal effort, no wheezing/crackles CV: RRR, no murmur, cap refill <2 GI: Soft, nondistended, nontender, no masses MSK: No obvious deformities Skin: Warm, dry, intact Neuro: A&O x3, speech NL, sensory and motor grossly intact, no focal deficits Psych: Normal affect, normal mood, not suicidal or homicidal Current Patient Data: Vital Signs: Vital Signs Date Time Temp Pulse Resp B/P (MAP) Pulse Ox O2 Delivery O2 Flow Rate FiO2 10/17/19 23:14 98.5 90 16 163/79 (107) 99 Room Air 98.5 EKG: EKG: [] Radiology/Procedures: Radiology/Procedures: [] Course & Med Decision Making: Course & Med Decision Making Pertinent Labs and Imaging studies reviewed. (See chart for details) Patient is a 53-year-old female presents to the emergency room with neck pain and associated paresthesias and sharp shooting pains. This is likely due to her chronic stenosis and muscle spasms after her fall 2 days ago. Patient has normal strength on exam. Fall was minor. She did not have immediate symptoms after fall. CT cervical spine is negative for any acute fractures or signs of injury at this time. Patient will be treated symptomatically. Patient's test results and vitals while in the ED were fully reviewed and discussed with the patient. Patient is stable and at this time does not need admission to the hospital. We have discussed strict return precautions and the importance of following up with their Primary Care Physician. Patient stated understanding and was given an opportunity to ask any questions. Patient is in agreement with plan. Katie Disclaimer: Katie Disclaimer: This electronic medical record was generated, in whole or in part, using a voice recognition dictation system. Departure Departure Impression: Primary Impression: Cervical stenosis of spine Additional Impression: Cervical radiculopathy Disposition: 01 HOME, SELF-CARE Condition: STABLE Referrals: NO PCP (PCP) Patient Instructions: Cervical Radiculopathy, [id number] Scripts Methocarbamol (ROBAXIN-750) 750 Mg Tablet 1 TAB PO TID PRN for PAIN for 10 Days, #30 TAB 0 Refills Prov: SERGO HAMMOND MD 10/18/19 Methylprednisolone (MEDROL) 4 Mg Tab.ds.pk 1 PKG PO UD for inflammation, #1 PKG Prov: SERGO HAMMOND MD 10/18/19 Justicifation of Admission Dx: Justifications for Admission: Justification of Admission Dx: N/A SERGO HAMMOND MD Oct 18, 2019 01:25
== END 2019-10-18 01:35 | disposition home or self-care (01) ==
LOC: ER 22:44
DX: M48.02 Spinal stenosis, cervical region (principal); M54.12 Radiculopathy, cervical region; R20.2 Paresthesia of skin; E11.9 Type 2 diabetes mellitus without complications; E78.00 Pure hypercholesterolemia, unspecified; F17.200 Nicotine dependence, unspecified, uncomplicated; F12.90 Cannabis use, unspecified, uncomplicated; Z98.890 Other specified postprocedural states
CPT/HCPCS: 72125; 96372; 99284; J1100; J1885